=== PATIENT | female | born 1990 | race Caucasian/White ===

== ENCOUNTER 2023-08-21 22:30 | Outpatient (CLI) | payer BC, SELFPAY ==
[2023-08-21 23:00] VITALS: BP 103/67; PULSE 89
[2023-08-21 23:15] VITALS: BP 107/61; PULSE 95
--- NOTE | 2023-08-21 23:25 | OBADM ---
This patient, Katarina Osborn, admitted to the OB room OB Post 117 for observation. Patient/family oriented to hospital policies and general routines including ID bracelet, bed and alarms, visiting hours, pain management, procedures, bathroom and other care routines, personal items, smoking policy, room service/diet, and visiting hours. Patient/Family are encouraged to report perceived risks to care and to ask questions if they do not understand what they are told or what they should do.
[2023-08-21 23:30] VITALS: BP 96/65; PULSE 89
[2023-08-21 23:30] LABS: Basophils Percent Auto 0.4 % (0.2-1.2); Eosinophils Absolute Auto 0.2 K/mm3 (0-0.3); Eosinophils Percent Auto 1.6 % (0-4.4); Hematocrit 31.5 % (37.0-47.0); Hemoglobin 10.7 g/dL (12.0-15.0); Immature Granulocyte Absolute 0.05 K/mm3 (0.00-0.031); Immature Granulocyte Percent A 0.5 % (0-0.5); Lymphocytes Absolute Auto 4.78 K/mm3 (0.9-3.2); Lymphocytes Percent Auto 46.4 % (18.3-44.2); Mean Corpuscular Hemoglobin 31.2 pg (26-34); Mean Corpuscular Volume 91.8 fl (80-100); Mean Platelet Volume 9.1 fl (7.4-10.4); Monocytes Absolute Auto 0.4 K/mm3 (0.1-0.6); Neutrophils Absolute Auto 4.9 K/mm3 (1.3-6.7); Neutrophils Percent Auto 47.1 % (45.5-73.1); Platelet Count Result 213 k/mm3 (150-375); Red Blood Count 3.43 M/mm3 (4.2-5.4); Red Cell Distribution Width 14.5 % (11.5-14.5); White Blood Count 10.3 K/mm3 (4.5-10.0)
[2023-08-21 23:32] LABS: Appearance Urine Clear (Clear); Bilirubin Urine Negative (Negative); Blood Urine Negative (Negative); Color Urine Yellow (Yellow); Glucose Urine UA Negative (Negative); Ketones Urine Negative (Negative); Leukocyte Esterase Ur Negative LEU/UL (Negative); Nitrate Urine Negative (Negative); Protein Urine Negative (Negative); Specific Grav Ur 1.009 (1.001-1.035); pH Urine 5.5 (5.0-9.0)
[2023-08-21 23:37] LABS: Add Urine Microscopic? NO
[2023-08-21 23:41] LABS: Alanine Aminotransferase 18 U/L (6-35); Albumin Level 2.9 g/dL (3.5-5.1); Alkaline Phosphatase 102 U/L (38-126); Anion Gap 8 mmol/L (4-12); Aspartate Amino Transferase 33 U/L (14-36); Bilirubin,Total 0.6 mg/dL (0.2-1.3); Blood Urea Nitrogen 8 mg/dL (7-17); Calcium 8.1 mg/dL (8.4-10.2); Carbon Dioxide 20 mmol/L (22-30); Chloride 106 mmol/L (98-107); Estimated Glomerular Filt Rate > 60; Glucose 112 mg/dL (65-110); Potassium 3.3 mmol/L (3.4-5.0); Sodium 134 mmol/L (137-145); Uric Acid 5.1 mg/dL (2.5-7.5)
[2023-08-22] VITALS: BP 109/65; PULSE 92
[2023-08-22 00:34] VITALS: BP 103/67
--- NOTE | 2023-08-22 00:38 | PC.NURSE ---
patient came in tonight with c/o left leg swelling that has been going on for weeks. Patient states that was her only complaint.
--- NOTE | 2023-08-22 00:42 | PC.NURSE ---
at 0006 talked to Doctor Franklin at this time reported on maternal and status. Also reported on maternal lab work. discharge orders given at this time.
== END 2023-08-22 00:45 | disposition home or self-care (01) ==
LOC: ANHOBOP 22:41 → ANHOBPP 22:43
PROVIDERS: Visit Provider Obstetrics & Gynecology
DX: O26.899 Other specified pregnancy related conditions, unspecified trimester (principal); M79.89 Other specified soft tissue disorders
CPT/HCPCS: 36415; 59025; 80053; 81003; 84550; 85025; 99199

== ENCOUNTER 2023-10-05 16:13 | Inpatient (IN) | payer BC, OTHER, SELFPAY ==
[2023-10-05] VITALS (73 sets, daily range): BP systolic 101–133; BP diastolic 51–92; PULSE 71–125; TEMP 36.8; O2SAT 96–100; BMI 29.7
[2023-10-05 17:00] LABS: Basophils Percent Auto 0.1 % (0.2-1.2); Eosinophils Absolute Auto 0.1 K/mm3 (0-0.3); Eosinophils Percent Auto 0.7 % (0-4.4); Hematocrit 31.9 % (37.0-47.0); Immature Granulocyte Absolute 0.04 K/mm3 (0.00-0.031); Immature Granulocyte Percent A 0.4 % (0-0.5); Lymphocytes Absolute Auto 3.17 K/mm3 (0.9-3.2); Lymphocytes Percent Auto 33.3 % (18.3-44.2); Mean Corpuscular HGB Conc 34.5 g/dl (32-36); Mean Corpuscular Hemoglobin 31.8 pg (26-34); Mean Corpuscular Volume 92.2 fl (80-100); Mean Platelet Volume 10.2 fl (7.4-10.4); Monocytes Absolute Auto 0.4 K/mm3 (0.1-0.6); Monocytes Percent Auto 3.8 % (2.6-8.5); Neutrophils Absolute Auto 5.9 K/mm3 (1.3-6.7); Neutrophils Percent Auto 61.7 % (45.5-73.1); Platelet Count Result 210 k/mm3 (150-375); Red Blood Count 3.46 M/mm3 (4.2-5.4); Red Cell Distribution Width 13.7 % (11.5-14.5); White Blood Count 9.5 K/mm3 (4.5-10.0)
[2023-10-05] MEDS: AMPICILLIN 2 GM/NS 100 ML 2 GM/100 ML BAG IVPB (17:09)
[2023-10-05] MEDS: LACTATED RINGERS 1,000 ML 125 ML IV CONT (17:10)
--- NOTE | 2023-10-05 17:15 | LDADM ---
This patient, Katarina Osborn, was admitted to Labor/Delivery/Recovery 105 on 10/05/23 at 16:13. Plans for labor, pain management and were discussed with patient. Patient/family oriented to hospital policies and general routines including ID bracelet, bed and alarms, visiting hours, pain management, procedures, bathroom and other care routines, personal items, smoking policy, room service/diet and guest tray routines, security routines, and visiting hours. Patient/Family are encouraged to report perceived risks to care and to ask questions if they do not understand what they are told or what they should do. See OBIX for further documentation.
[2023-10-05 17:53] LABS: HIV 1/2 Ab P24 Ag Result Negative (Negative)
[2023-10-05 18:07] LABS: Rapid Plasma Reagin Non-Reactive (NonReactive)
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
[2023-10-05] MEDS: AMPICILLIN 1 GM/NS 50 ML 1 GM/50 ML BAG IVPB (22:15)
[2023-10-06] VITALS (140 sets, daily range): BP systolic 107–140; BP diastolic 64–111; PULSE 25–143; RESP 16–18; TEMP 36.7–38.2; O2SAT 37–100
[2023-10-06] MEDS: OXYTOCIN 30 UNITS/NS 500 ML 30 UNITS/500 ML BAG IV CONT
[2023-10-06] MEDS: LACTATED RINGERS 1,000 ML 125 ML IV CONT ×2 (00:03→06:20)
[2023-10-06] MEDS: AMPICILLIN 1 GM/NS 50 ML 1 GM/50 ML BAG IVPB ×2 (02:15→06:20)
--- NOTE | 2023-10-06 07:23 | WPDOBADMIT ---
Obstetrics - Admit Note Admission Note: record reviewed. No pertinent additions to the history and/or any subsequent changes in the physical findings that are not consistent with the expected course of the were found. Additions to the history and/or subsequent changes in the physical findings follow. Admit for SROM, anticipate vaginal delivery
[2023-10-06] MEDS: miSOPROStol 200 MCG TABLET 1000 MCG (08:41)
[2023-10-06] MEDS: OXYTOCIN 30 UNITS/NS 500 ML 30 UNITS/500 ML BAG 125 UNITS IV CONT (09:05)
--- NOTE | 2023-10-06 09:12 | PM.OBPRVD ---
OB - Vaginal Delivery Note Procedure Delivery date: 10/06/23 Delivery augmentation: Pitocin Delivery monitor: External FHT and Internal Uterine Route of delivery: Episiotomy description: None Laceration Description: None Specimen: No Quantitative Blood Loss (ml): 125 Anesthesia type: Epidural Disposition: Floor Complications: No immediate complications [place] Baby Date of : 10/06/23 Time of : 08:29 Gestational Age by Date: 39 presentation: vertex position: Left Occiput Anterior Placenta delivery description: Spontaneous Cord Vessel Description: 3 Vessels, Nuchal Cord (x1) and Loose score one minute: 9 score five minutes: 9 Narrative: mother and baby skin to skin in stable condition
[2023-10-06] MEDS: IBUPROFEN 600 MG TABLET PO (11:43)
--- NOTE | 2023-10-06 13:36 | PC.NURSE ---
Patient transferred to post room #285 via wheelchair. Support person present. Oriented to unit, room, information board, rooming in, admission packet and security measures. Patient verbalizes understanding.
--- NOTE | 2023-10-06 14:00 | PC.NURSE ---
Introductions were made, then consulted with patient to assess needs related to . Mother states that she feels confident feeding infant and does not require any assistance. Reviewed feeding sheet with parents. Mother works well with her . No latch was observed at this time. Mother voiced understanding of skin to skin, stimulating with massage touch, responsive feedings, hand expressed colostrum, talking to infant to encourage if it has been 2 -2.5 hours since the start of the last , to call if does not latch, or if there is discomfort with . Parents voiced understanding of information and will call if there is a request for assistance. Reported to the Primary RN.
[2023-10-07 04:58] LABS: Hematocrit 31.3 % (37.0-47.0)
[2023-10-07 08:00] VITALS: PULSE 70; RESP 16; O2SAT 99
[2023-10-07 08:05] VITALS: BP 115/73; PULSE 70; RESP 16; TEMP 36.7; O2SAT 99
--- NOTE | 2023-10-07 08:34 | PM.OBPNVD ---
OB - PN: Subj Subjective Date/time seen: 10/07/23 08:34 Patient comments: no complaints, pain well controlled, incisional pain, tolerating diet and flatus present OB - PN: Obj Data Labs 10/07/23 04:18 Labs: Laboratory Results - last 24 hr 10/07/23 04:18 Hgb 10.0 L Hct 31.3 L OB - PN A/P Plan day: 1 Plan: routine care Comments: No problems, routine care Time Spent With Patient Time: Total time spent is greater than 50% in coordination of care (as documented) at patient's floor/unit and/or counseling patient: Exam Const: General: comfortable, no acute distress and alert Resp: Effort & Inspection: normal respiratory effort Auscultation: no crackles, no rales and no rhonchi Cardio: Rate: regular rate Heart sounds: no click, no murmurs and no rubs GI: Inspection: non-distended GI Palp: No Tenderness to palpation present (GI) Auscultation: normal bowel sounds Other: Incision - CDI Extrem: General: normal to inspection, no pedal edema and no calf tenderness
--- NOTE | 2023-10-07 08:34 | PM.OBDSVD ---
DS: Admitting Diagnosis Discharge Date October 07, 2023 Admitting Diagnosis term DS: Discharge Diagnosis Discharge Diagnosis (1) Post term , delivered: Code(s): O48.0 - Post-term Status: Acute OB - DS: Summary OB Procedures : None OB Procedures Intrapartum: Spontaneous Vag Delivery OB Procedures: : None Peripartum Data Laceration Description: None Episiotomy description: None Time Spent with Patient Time attestation: Total time spent providing and/or coordinating discharge services: DS: Data Data Completed and Pending Labs on day of discharge: Labs from last 24 hours 10/07/23 04:18 Hgb 10.0 L Hct 31.3 L Discharge Plan Discharge Discharging Clinician: Michael Reid Patient Disposition: Home, Self-Care Activity: pelvic rest Diet: regular Patient Instructions: Antibiotic Form Stand Alone Forms: General Discharge Information Follow-up/Referrals: Michael Reid MD [Physician] - Discharge Medications: Continued Classic 28 mg iron- 800 mcg Tablet 1 tablet PO DAILY Date of admission: 10/05/23 16:13 Primary Care Provider: PHYSICIAN,PSYCHIATRIC TECHNICIAN ASSISTANT Admitting Provider: Michael Reid Attending physician on admission: Michael Reid Condition: Stable
--- NOTE | 2023-10-07 10:31 | WPDANLDPN2 ---
Anes-Prog Note L&D Date/Time: 10/07/23 10:31 Comfortable throughout: labor and delivery Neuraxial method: epidural Epidural/Spinal procedure site: clean & non-tender Neuro status: Neuro function grossly intact. Cardiovascular status: normal Respiratory status: normal Airway patency: baseline Mental status: baseline Post-Op hydration status: normal Vital Signs: Last Vital Signs Temp 98.1 F 10/07/23 08:05 Pulse 70 10/07/23 08:05 Resp 16 10/07/23 08:05 BP 115/73 10/07/23 08:05 Pulse Ox 99 10/07/23 08:05 O2 Del Method Room Air 10/06/23 20:00 Pain score (VAS): 0 Post-procedural complaints: none Patient feedback: Patient satisfied with anesthetic care.
[2023-10-07] MEDS: IBUPROFEN 600 MG TABLET PO (11:36)
[2023-10-07] MEDS: MULTIVIT/MIN/PREN/FOL AC/IRON TABLET 1 TAB PO (11:37)
--- NOTE | 2023-10-07 12:20 | PC.NURSE ---
Consulted with mother concerning needs and she shared her ability to independently latch infant optimally without pain. Mother is feeding appropriately for growth of infant and understands stimulating to eat if needed. Infant has had appropriate feedings in the last 24 hours meets the outcomes for weight, output, blood sugar and jaundice at this time. Reinforced understanding of milk production, transition of milk, signs of adequate intake, transition of stool, prevention/relief of engorgement, plugged ducts, mastitis, responsive watching for feeding cues, the different methods of stimulating infant to breastfeed 1-3 hours after the start of the last feeding, community resources, and when to call a provider using the resource of the feeding sheet along with the mom and baby guide. Mother voiced understanding of the information shared, is confident to continue effectively her at home, when to call for assistance, denies any additional assistance or education at this time. Latch observed, infant successfully nursing on the left breast in football position. Reported to the Primary RN.
[2023-10-07 20:00] VITALS: BP 129/82; PULSE 79; RESP 20; TEMP 36.7; O2SAT 98
[2023-10-08 08:00] VITALS: BP 130/79; PULSE 80; RESP 18; TEMP 36.7; O2SAT 98; O2SAT 99
--- NOTE | 2023-10-08 11:39 | PM.OBPNVD ---
OB - PN: Subj Subjective Date/time seen: 10/08/23 11:39 Patient comments: no complaints, pain well controlled and tolerating diet OB - PN: Obj Data Labs 10/07/23 04:18 OB - PN A/P Plan day: 2 Plan: routine care and discharge home Time Spent With Patient Time: Total time spent is greater than 50% in coordination of care (as documented) at patient's floor/unit and/or counseling patient: Exam Const: General: comfortable and no acute distress Resp: Effort & Inspection: normal respiratory effort Auscultation: no rales, no rhonchi and no wheezes Cardio: Rate: regular rate Heart sounds: no click, no murmurs and no rubs GI: GI Palp: Yes Soft to palpation and No Tenderness to palpation present (GI) Auscultation: normal bowel sounds Extrem: General: normal to inspection, no pedal edema and no calf tenderness
[2023-10-09 15:58] VITALS: BP 118/79; PULSE 75; RESP 18; TEMP 36.8; O2SAT 100
== END 2023-10-08 12:05 | disposition home or self-care (01) | DRG 807 ==
LOC: ANHLDR 17:03 → ANHOB2 10-06 11:48
PROVIDERS: Advanced Practice Midwife; Admitting Provider Obstetrics & Gynecology; Visit Provider Obstetrics & Gynecology
DX: O69.81X0 Labor and delivery complicated by cord around neck, without compression, not applicable or unspecified (principal); Z37.0 Single live birth; Z3A.39 39 weeks gestation of pregnancy
CPT/HCPCS: 36415; 85014; 85018; 85025; 86592; 86703; 86850; 86900; 86901; A9270; G0432; J0290; J2590; J2795; J7120